=== PATIENT | male | born 1965 | race Caucasian/White ===

== ENCOUNTER 2017-12-13 13:08 | Emergency (ER) | payer BC, SELFPAY ==
[2017-12-13 13:14] VITALS: BP 151/107; PULSE 90; RESP 16; TEMP 36.9; O2SAT 97
--- NOTE | 2017-12-13 14:11 | ED.GENADUL ---
Disposition Clinical Impression: Cervical radiculopathy, Neck muscle spasm Disposition: HOME Condition: Improving Instructions: Cervical Radiculopathy (ED), Muscle Spasm (ED), Acute Neck Pain (ED) Additional Instructions: Alternate Tylenol and Motrin as needed and directed for pain. Take the Valium as directed for help with muscle spasm. Take the oxycodone as needed and directed for pain not relieved with the Tylenol, Motrin or Valium. Follow-up with your primary care doctor within the next week. Return to the emergency department with any worsening or new concerning symptoms. Prescriptions: Diazepam [Valium] 5 mg PO TID PRN #12 tablet PRN Reason: Muscle Spasm OxyCODONE [Roxicodone] 5 mg PO Q6H PRN #10 tab PRN Reason: Pain Forms: Work Release Medical Decision Making - Medical Decision Making 52-year-old male who presents with right lateral neck pain extending into right trapezius and down right arm into forearm for the past 5 days. Denies specific injury. Pain is worse with movement of head and arm. Patient was seen by chiropractor and PCP office this week. Patient was diagnosed with likely muscle strain and given Toradol IM and prednisone by PCP office. Patient has only taken 1 dose of steroids yesterday. No relief with Tylenol with codeine and Flexeril from a previous injury at home today. Patient appears nontoxic and in no acute distress. He denies chest pain, shortness of breath or fever. His lungs are clear to auscultation. He has normal oxygen saturation. As pain is worse with movement of his head and arm, appears consistent likely with a muscle spasm/strain causing a cervical radiculopathy. I explained to patient that further assessment could include a CT neck to assess for any bony abnormality but he is refusing this at this time. I also discussed the possibility of an MRI cervical spine at some point at a later time if recommended by his PCP if pain persists or worsens but generally a trial of physical therapy is done before this if no obvious acute concerns. Patient states he has been holding his head still more over the past few days due to pain with movement. I explained that this may be causing worsening spasm of his neck. Instructed him to take his neck and head through gentle range of motion exercises, in conjunction with ice and heat, NSAIDs. Will add Valium as a muscle relaxer as well as oxycodone if needed. Will give a dose of Toradol IM, Valium p.o. and oxycodone p.o. here and reassess. 1445 --patient states he feels better. Patient appears to be moving more comfortably. Patient feels good to go home. Patient instructed to call his primary care doctor today or tomorrow to schedule follow-up appointment for next week and return to the ER with any concerns. History of Present Illness - General Chief complaint: Nk/Back Pain Stated complaint: PINCHED NERVE IN HIS NECK Time Seen by Provider: 12/13/17 13:20 Source: patient Mode of arrival: ambulatory Limitations: no limitations - History of Present Illness Initial comments: Pt is a 52yo M who presents to the ED w/ a c/o right-sided neck pain with radiation to right arm for the past 5 days. Patient denies any specific injury. Patient states the pain is worse with movement of his head and arm. He admits to some numbness in his arm and forearm but denies any arm weakness. He has taken ibuprofen for pain without relief. He saw his chiropractor 2 days ago and had his neck adjusted without relief. He was seen at his PCP office yesterday for the same complaint and was diagnosed likely with a muscle strain and started on prednisone and given a shot of Toradol in the office but denies any relief with this. Patient states he had Tylenol with codeine and Flexeril left over from a few years ago and took these today without relief. Patient denies chest pain, shortness of breath or fever. - Related Data Ibuprofen 800 mg PO TID PRN tab-cap 12/12/17 Prednisone 40 mg PO DAILY #14 tab-cap 12/12/17 Diazepam [Valium] 5 mg PO TID PRN #12 tablet 12/13/17 OxyCODONE [Roxicodone] 5 mg PO Q6H PRN #10 tab 12/13/17 Allergies Allergy/AdvReac Type Severity Reaction Status Date / Time No Known Allergies Allergy Unverified 12/13/17 13:17 Review of Systems Constitutional: denies: chills, fever Eyes: denies: eye pain ENT: denies: ear pain, dental pain Respiratory: denies: cough, shortness of breath Cardiovascular: denies: chest pain, dyspnea on exertion Gastrointestinal: denies: abdominal pain, nausea, vomiting Genitourinary: denies: urgency, dysuria, frequency Musculoskeletal: denies: back pain Skin: denies: rash, lesions Neurological: denies: headache, weakness, numbness Past Medical History - Past Medical History Medical history: hypertension Surgical history: other (knee surgery, shoulder surgery) Psychiatric history: depression - Social History Smoking status: never smoker Alcohol use: occasionally Drug use: none General Exam - General Limitations: no limitations General appearance: alert, in no apparent distress - Head Head exam: Present: atraumatic - Eye Eye exam: Present: PERRL, EOMI - Neck Neck exam: Present: normal inspection, other (No tenderness to palpation of right lateral paraspinal cervical region or overlying right trapezius.) - Respiratory Respiratory exam: Present: normal lung sounds bilaterally. Absent: respiratory distress, wheezes, rales, rhonchi, stridor - Cardiovascular Cardiovascular Exam: Present: regular rate, normal rhythm. Absent: bradycardia, tachycardia - GI/Abdominal GI/Abdominal exam: Present: soft, normal bowel sounds. Absent: distended, tenderness, guarding, rebound, rigid - Extremities Exam Extremities exam: Present: full ROM, other (No tenderness palpation of right upper arm or forearm.) - Neurological Exam Neurological exam: Present: alert, oriented X3, other (MS 5/5 b/l UE/LE. Symmetric and normal motor function b/l radial/median/ulnar nerve function 5/5. Cap refill less than 2 seconds. 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 Absent: motor sensory deficit - Psychiatric Psychiatric exam: Present: normal affect - Skin Skin exam: Present: warm, dry, intact Course Vital Signs - 24 hr 12/13/17 13:14 Temperature 98.4 F Pulse 90 Respiratory 16 Rate Blood Pressure 151/107 Pulse Oximetry 97
[2017-12-13] MEDS: oxyCODONE 5 MG TAB PO (14:16)
[2017-12-13] MEDS: Diazepam 5 MG TAB PO (14:16)
[2017-12-13] MEDS: Ketorolac 60 MG/2 ML VIAL IM (14:16)
== END 2017-12-13 14:55 | disposition home or self-care (01) ==
PROVIDERS: Emergency Provider Physician Assistant; PCP Family Medicine
DX: M54.12 Radiculopathy, cervical region (principal); M62.838 Other muscle spasm
CPT/HCPCS: 96372; 99284; J1885

== ENCOUNTER 2017-12-16 08:40 | Emergency (ER) | payer BC, SELFPAY ==
[2017-12-16 08:46] VITALS: BP 121/86; PULSE 81; RESP 20; TEMP 36.4; O2SAT 97
--- NOTE | 2017-12-16 09:05 | ED.GENADUL_ITS ---
Discharge Plan Discharge Details Chief Complaint: Nk/Back Pain Clinical Impression: Cervical radiculopathy Reason For Visit: neck pain Primary Care Provider: Wilber Vázquez ED Provider: Dwight Vargas Disposition Patient Disposition: HOME Home Meds and New Rx's Prescriptions: New gabapentin 300 mg capsule 300 mg PO TID Qty: 30 RF: 0 Continue ibuprofen 800 MG tablet 800 mg PO TID PRN RF: 0 prednisone 20 MG tablet 40 mg PO DAILY Qty: 14 RF: 0 diazepam [Valium] 5 MG tablet 5 mg PO TID PRN (Reason: Muscle Spasm) Qty: 12 RF: 0 Discontinued oxycodone 5 MG tablet 5 mg PO Q6H PRN (Reason: Pain) Qty: 10 RF: 0 Discharge Instructions Instructions: Gabapentin (By mouth), Cervical Radiculopathy (ED) Additional Instructions: follow up with your primary care provider this week if you have high fevers or severe headaches return to the emergency department you can also take 1000mg tylenol and 600mg ibuprofen every 6 hours for pain as needed Discharge Data Discharge Physician: Dwight Vargas Medical Decision Making [facility] Narrative Medical decision making narrative: patient here with 6 days of nontraumatic right sided neck pain and pain radiating down the right arm that is likely cervical radiculopathy. No fevers and no hx of ivdu so doubt sea. No focal motor or sensation deficits so do not feel emergent MRI indicated and no fevers or systemic symptoms to suggest osteo. Has no trauma or midline emily so do not feel ct to eval for fx indicated. I advised he should f/u with pcp and discuss mri and further pain management, will start gabapentin. Has normal vascular exam so doubt dissection at this time. 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 Date/Time Provider Initiated Documentation: 12/16/17 08:53 . Limitations to Documentation: no limitations . Information obtained by: patient . History of Present Illness 52 year old M presents to the emergency department with the chief complaint of right sided neck pain, described as severe, with intensity rated at 8. Quality is described as sharp, and is localized to the neck. Patient extremity (right arm). Patient started experiencing this day(s) (6) and it has been constant. other things that improve symptom(s), (laying down) No exacerbating factors reported . Patient notes no other symptoms.. Patient did receive the following treatments prior to arrival, other (oxycodone) Related Data Home Medications Medication Instructions Recorded Confirmed ibuprofen 800 mg PO TID PRN tab-cap 12/12/17 12/13/17 Previous Rx's Medication Instructions Recorded diazepam [Valium] 5 mg PO TID PRN #12 tablet 12/13/17 gabapentin 300 mg PO TID #30 cap 12/16/17 Allergies Allergy/AdvReac Type Severity Reaction Status Date / Time No Known Allergies Allergy Unverified 12/13/17 13:17 General Stated Complaint: Nk/Back Pain DOLORES: 4 Review of Systems Review of Systems All systems reviewed & are unremarkable except as noted in HPI and below Constitutional Denies chills, Denies fever(s) and Denies weakness Eyes Patient Denies loss of vision ENT Denies change in voice Cardiovascular Denies chest pain and Denies dyspnea Respiratory Denies dyspnea Gastrointestinal Denies abdominal pain, Denies nausea and Denies vomiting Genitourinary Denies dysuria Musculoskeletal Denies joint swelling and Reports other (right neck pain ) Integumentary/Breasts Denies rash Neurologic Denies loss of vision and Denies weakness Psychiatric Denies depression Endocrine Denies cold intolerance and Denies heat intolerance Allergic/Immunologic Reports urticaria PFSH Family History Mother Essential hypertension Asthma Father Diabetes Essential hypertension Heart disease Sister No problems noted. Grandfather Personal history of malignant neoplasm Grandfather Essential hypertension Heart disease Grandmother No problems noted. Grandmother Personal history of malignant neoplasm Social History Smoking/Tobacco Use Status: Current every day Surgical History KNEE REPAIR Rotator Cuff Repair (~2006) Exam Const General: no acute distress Orientation: alert HENMT Head: normal to inspection Ears: external ears normal General nose exam: external nose normal Mouth: moist mucous membranes Eyes General: appearance normal, both eyes and all related structures Neck Neck: normal visual inspection, full ROM, no meningeal signs, trachea midline, negative Brudzinski's sign, negative Kernig's sign and tender (right sided trapezius muscle pain) Resp Effort & Inspection: normal respiratory effort and able to speak in complete sentences Cardio Rate: regular rate Skin General skin exam: no rashes or lesions noted Neuro General: alert, oriented x3, moves all extremities, normal light touch, pain and propioception and focal motor deficits present Motor: muscle tone normal throughout and strength 5/5 throughout Sensory Exam: no sensory deficits noted Extrem General: normal to inspection, full ROM and normal capillary refill Right upper extremity: normal to inspection, full ROM and normal capillary refill; no edema Psych Mental Status: mental status grossly normal Course Vital Signs Temperature 36.4 C L 12/16/17 08:46 Pulse 81 12/16/17 08:46 Respiratory Rate 20 12/16/17 08:46 Blood Pressure 121/86 12/16/17 08:46 Pulse Oximetry 97 12/16/17 08:46 Temperature 36.4 C L 12/16/17 08:46 Pulse 81 12/16/17 08:46 Respiratory Rate 20 12/16/17 08:46 Blood Pressure 121/86 12/16/17 08:46 Pulse Oximetry 97 12/16/17 08:46
[2017-12-16] MEDS: Gabapentin 300 MG CAP PO (09:08)
[2017-12-16] MEDS: oxyCODONE 5 MG TAB PO ×3 (09:09→09:33)
--- NOTE | 2017-12-16 09:33 | NUR.NOTE ---
Nursing Note: Due to system upgrade, 3 separate dose of oxycodone 5mg tablets had to be pulled from [facility] [employer]. Sent home with patient in labelled bag per protocol.
[2017-12-16 09:34] VITALS: BP 121/86; PULSE 81; RESP 20; TEMP 36.4; O2SAT 97
== END 2017-12-16 09:33 | disposition home or self-care (01) ==
PROVIDERS: Emergency Provider Emergency Medicine; PCP Family Medicine
DX: M54.2 Cervicalgia (principal)
CPT/HCPCS: 99283

== ENCOUNTER 2017-12-19 01:23 | Outpatient (CLI) | payer BC, SELFPAY ==
--- NOTE | 2017-12-19 11:30 | DI.MRI_ITS ---
SYMPTOMS/DIAGNOSIS: RIGHT CERVICAL RADICULOPATHY MRI OF THE CERVICAL SPINE: Routine noncontrast MRI of the cervical spine was performed. There is normal signal in the spinal cord. No evidence of tonsillar ectopia is seen. At C5-C6, there is prominence of the osteophyte-disc complex with extension of disc material into the right neural foramen. The findings cause moderately severe right neural foraminal stenosis. There is mild narrowing of the central spinal canal with effacement of the anterior subarachnoid space. The AP diameter of the spinal canal remains at 1.1 cm. There is mild prominence of the left uncovertebral joint causing mild narrowing of the left neural foramen. At C4-C5, there is prominence of the osteophyte-disc complex and a small central disc herniation, but no central spinal canal or neural foraminal stenosis is present. At C3-C4, there is no focal disc herniation, central spinal canal or neural foraminal stenosis. The remaining disc levels are unremarkable. Marrow signal is within normal limits. The soft tissues are unremarkable. IMPRESSION: 1. C5-C6 shows degenerative changes at the uncovertebral joints and prominence of the osteophyte-disc complex. There does appear to be a herniation of disc material to the right causing moderately severe right neural foraminal stenosis. 2. Multilevel degenerative changes in the cervical spine as described above.
== END 2017-12-19 01:43 ==
LOC: DI 01:24
PROVIDERS: PCP Family Medicine; Visit Provider Family Medicine
DX: M54.12 Radiculopathy, cervical region (principal); M50.922 Unspecified cervical disc disorder at C5-C6 level
CPT/HCPCS: 72141

== ENCOUNTER 2018-01-01 00:44 | Outpatient (CLI) | payer BC, SELFPAY ==
--- NOTE | 2018-01-01 10:30 | DI.MRI_ITS ---
SYMPTOMS/DIAGNOSIS: RT SHOULDER PAIN, M25.511, CERVICALGIA, M54.2 RIGHT SHOULDER MRI: T 2 axial fat sat , proton density axial, T 2 coronal fat sat, proton density coronal, T 2 sagittal fat and proton sagittal pulse sequences were performed. The bony signal is unremarkable. There is no evidence of a supraspinatus tendon tear. The infraspinatus and subscapularis myotendinous structures as visualized appear intact as does the biceps tendon. The possibility of an inferior labral tear could not be excluded in this patient. The muscular structures get a Goutallier grade I classification. SUMMARY: The possibility of an inferior labral tear is raised in this patient. The study is otherwise essentially unremarkable. If there is specific further clinical question, then a MR Arthrogram could be considered.
== END 2018-01-01 01:04 ==
PROVIDERS: PCP Family Medicine; Visit Provider Family Medicine
DX: M25.511 Pain in right shoulder (principal); M54.2 Cervicalgia
CPT/HCPCS: 73221

== ENCOUNTER 2018-01-11 01:07 | Outpatient (CLI) | payer BC, SELFPAY ==
[2018-01-11 12:45] LABS: Abs Immature Grans 0.06 k/cumm (0.0-0.09); Absolute Basophil Count 0.04 k/cumm (0.0-0.2); Absolute Eosinophil Count 0.13 k/cumm (0.0-0.7); Absolute Lymphocyte Count 1.85 k/cumm (1.2-3.4); Absolute Monocyte Count 0.66 k/cumm (0.11-0.7); Absolute Neutrophil Count 2.85 k/cumm (1.2-6.7); Basophils % 0.7; Eosinophils % 2.3; HCT 44.3 % (40.0-50.0); HGB 15.2 g/dL (13.5-17.5); Immature Grans % 1.1; Lymphocytes % 33.1; Mean Corp. HGB Concentration 34.3 g/dL (32.0-36.0); Mean Corpuscular Hemoglobin 32.8 pg (27.0-33.0); Mean Corpuscular Volume 95.5 fL (80-95); Mean Platelet Volume 11.8 fL (8.0-11.0); Monocytes % 11.8; Platelet Count 126 x1000/uL (130-400); RBC 4.64 m/cumm (4.50-6.00); RBC Distribution Width 12.5 % (11.8-14.1); White Blood Cell Count 5.59 k/cumm (4.4-10.8)
[2018-01-11 13:17] LABS: ALT 18 U/L (12-78); AST 20 U/L (15-37); Albumin 3.7 g/dL (3.4-5.0); Alkaline Phosphatase 59 U/L (46-116); Anion Gap 8.9 mmol/L (3-11); BUN 12 mg/dL (7-18); CO2 25.1 mmol/L (21.0-32.0); CREATININE 0.99 mg/dL (0.70-1.30); Calcium 8.5 mg/dL (8.5-10.1); Chloride 104 mmol/L (98-107); Glucose 196 mg/dL (70-100); Potassium 4.5 mmol/L (3.5-5.1); Sodium 138 mmol/L (136-145); Total Protein 6.7 g/dL (6.4-8.2)
[2018-01-14 05:45] LABS: Hemoglobin A1C 7.4 % (4.5-6.2)
== END 2018-01-11 01:27 ==
PROVIDERS: Internal Medicine; PCP Family Medicine; Visit Provider Family Medicine
DX: Z01.818 Encounter for other preprocedural examination (principal); R73.09 Other abnormal glucose
CPT/HCPCS: 36415; 80053; 83036; 85025

== ENCOUNTER 2018-02-11 09:08 | Outpatient (CLI) | payer BC, SELFPAY ==
[2018-02-11 10:25] LABS: Anion Gap 13.4 mmol/L (3-11); BUN 12 mg/dL (7-18); CO2 22.6 mmol/L (21.0-32.0); CREATININE 1.07 mg/dL (0.70-1.30); Calcium 9.1 mg/dL (8.5-10.1); Chloride 102 mmol/L (98-107); Glucose 195 mg/dL (70-100); Potassium 4.6 mmol/L (3.5-5.1); Sodium 138 mmol/L (136-145)
== END 2018-02-11 09:28 ==
PROVIDERS: PCP Family Medicine; Visit Provider Family Medicine
DX: E11.9 Type 2 diabetes mellitus without complications (principal)
CPT/HCPCS: 36415; 80048

== ENCOUNTER 2018-02-20 13:20 | Outpatient (CLI) | payer BC, SELFPAY ==
--- NOTE | 2018-02-20 15:00 | DI.RAD_ITS ---
SYMPTOMS/DIAGNOSIS: S/P CERVICAL SPINAL FUSION, V45.4, 01/17/18 ACDF AT C5-6 LATERAL CERVICAL SPINE: The patient is status post fusion of the C 5 - [address] vertebra[address] in place. There is no evidence of a fracture or subluxation. There may be some very slight retrolisthesis of C 5 on C 6. In the lateral plane no posterior element abnormality is seen. No prior plain film images were extant at the time of this review.
== END 2018-02-20 13:40 ==
PROVIDERS: PCP Family Medicine; Visit Provider Physician Assistant Medical
DX: M50.10 Cervical disc disorder with radiculopathy, unspecified cervical region (principal); Z98.1 Arthrodesis status
CPT/HCPCS: 72020

== ENCOUNTER 2018-08-13 11:21 | Outpatient (CLI) | payer BC, SELFPAY ==
[2018-08-13 12:03] LABS: Hemoglobin A1C 6.1 % (4.5-6.2)
== END 2018-08-13 11:41 ==
PROVIDERS: PCP Family Medicine; Visit Provider Family Medicine
DX: E11.9 Type 2 diabetes mellitus without complications (principal)
CPT/HCPCS: 36415; 83036

== ENCOUNTER 2019-02-20 00:06 | Outpatient (CLI) | payer BC, SELFPAY ==
[2019-02-20 12:57] LABS: Anion Gap 7.6 mmol/L (3-11); BUN 17 mg/dL (7-18); CO2 28.4 mmol/L (21.0-32.0); CREATININE 0.95 mg/dL (0.70-1.30); Calcium 8.8 mg/dL (8.5-10.1); Chloride 103 mmol/L (98-107); Glucose 127 mg/dL (70-100); Potassium 4.5 mmol/L (3.5-5.1); Sodium 139 mmol/L (136-145)
== END 2019-02-20 00:26 ==
PROVIDERS: PCP Family Medicine; Visit Provider Family Medicine
DX: I10 Essential (primary) hypertension (principal)
CPT/HCPCS: 36415; 80048

== ENCOUNTER 2019-12-26 14:03 | Outpatient (REF) | payer OTHER, SELFPAY ==
[2019-12-26 21:16] LABS: ALT 19 U/L (16-63); AST 23 U/L (15-37); Albumin 3.9 g/dL (3.4-5.0); Alkaline Phosphatase 56 U/L (46-116); Anion Gap 8.5 mmol/L (3-11); BUN 15 mg/dL (7-18); Bilirubin, Total 1.2 mg/dL (0.2-1.0); CO2 25.5 mmol/L (21.0-32.0); CREATININE 0.93 mg/dL (0.70-1.30); Calcium 8.5 mg/dL (8.5-10.1); Calculated LDL 123 mg/dL (<100); Chloride 101 mmol/L (98-107); Cholesterol 191 mg/dL (<200); Glucose 162 mg/dL (74-106); HDL Cholesterol 46 mg/dL (40-60); Potassium 4.2 mmol/L (3.5-5.1); Sodium 135 mmol/L (136-145); Triglyceride 110 mg/dL (<150)
[2019-12-26 21:23] LABS: Hemoglobin A1C 6.8 % (<5.7)
== END 2019-12-26 14:23 ==
LOC: LBN 14:03
PROVIDERS: PCP Nurse Practitioner Family; Visit Provider Nurse Practitioner Family
DX: E11.9 Type 2 diabetes mellitus without complications (principal)
CPT/HCPCS: 80053; 80061; 83036

== ENCOUNTER → 2020-05-14 00:58 | Outpatient (CLI) | payer OTHER, SELFPAY ==
[2020-05-14 12:41] LABS: Hemoglobin A1C 7.1 % (<5.7)
[2020-05-14 13:06] LABS: Anion Gap 7.2 mmol/L (3-11); BUN 17 mg/dL (7-18); CO2 26.8 mmol/L (21.0-32.0); Calcium 8.9 mg/dL (8.5-10.1); Calculated LDL 64 mg/dL (<100); Chloride 104 mmol/L (98-107); Cholesterol 129 mg/dL (<200); Glucose 128 mg/dL (74-106); HDL Cholesterol 42 mg/dL (40-60); Sodium 138 mmol/L (136-145); Triglyceride 117 mg/dL (<150); Vitamin B12 301 pg/mL (193-986)
== END ==
PROVIDERS: PCP Nurse Practitioner Family; Visit Provider Nurse Practitioner Family
DX: E11.9 Type 2 diabetes mellitus without complications (principal); Z86.39 Personal history of other endocrine, nutritional and metabolic disease
CPT/HCPCS: 36415; 80048; 80061; 82607; 83036

== ENCOUNTER 2020-11-08 12:45 | Day surgery (SDC) | payer OTHER, SELFPAY ==
--- NOTE | 2020-11-08 07:04 | W.COLOREPORT ---
Date of service: 11/08/20 Time of Service: 13:35 Colonoscopy Report Date of procedure: 11/08/20 Pre-op diagnosis general: Colon Cancer Screening for Hx of colon polyps Post-op diagnosis procedure note: same Procedure: Colonoscopy Surgeon: Kathleen Reese Anesthesia Type: General:No Airway (ASA 2/ Jose Lebron, ROSIO) Estimated blood loss (mL): 0 Pathology: none sent Complications: None Disposition: same day Indications: The patient is here for Colonoscopy pre-op. His last screening was in 2016, which was remarkable for tubular adenoma. He reports a family history of colon cancer in his maternal grandfather. He has not had any bowel habit changes. -Discussed colonoscopy bowel prep as well as the procedure. Discussed possible complications of the procedure to include bleeding, pain, perforation, missed small lesion/polyp, sore throat, aspiration and adverse reaction to the medications. Questions were answered to patient?s satisfaction. No guarantees were implied or given. Prep: Miralax/Dulcolax Procedure Start Time: 13:35 Procedure End Time: 13:56 Retraction Time: 13 minutes Findings: Normal colon Procedure Description: After informed consent was obtained the patient was taken to the procedure room and placed in a left decubitous position. Monitors were applied and a time out was done. The patients name, date of , procedure, allergies to medications and metal in their body was reviewed. The patient was then sedated. Once sedated and comfortable a rectal exam was done. External exam was normal. Internal exam revealed a normal sphincter tone and no palpable masses. The prostate felt smooth. The scope was then introduced and retro-flexed. No internal hemorrhoids, polyps or masses were identified on retro-flexion. The scope was then advanced to the cecum without difficulty. The ileocecal vlave and appendiceal orifice were identified. The prep was adequate. The scope was then slowly retracted over 13 minutes back into the rectum. There were no polyps. There was no diverticulosis noted. The scope was removed and the patient was woken up and taken back to Same day surgery in stable condition. The patient tolerated the procedure well and there were no immediate complications. Follow up: The patient should follow up in 5 years unless they develop changes in bowel habits or other new gastrointestinal complaints.
--- NOTE | 2020-11-08 07:06 | W.PM.DSUDISC ---
Discharge Plan Disposition Patient Disposition: HOME Condition: Good Discharge Details Reason For Visit: HX OF POLYPS Attending Provider: Kathleen Reese Primary Care Provider: Minerva Denney Home Meds and New Rx's Prescriptions: Continued rosuvastatin 5 mg tablet 5 mg PO DAILY Qty: 90 RF: 4 metformin 500 mg tablet extended release 24hr 1,000 mg PO BID Qty: 360 RF: 4 Discontinued polyethylene glycol 3350 17 gram/dose powder 238 g PO ONCE Qty: 238 RF: 0 bisacodyl [Dulcolax (bisacodyl)] 5 mg tablet,delayed release (DR/EC) 5 mg PO ONCE Qty: 4 RF: 0 Discharge Instructions Additional Instructions: Findings: normal colon Follow up: 5 years Please call if you develop: fevers >101.5 Nausea or Vomiting Abdominal pain that is not transient Rectal bleeding that is more then a tbsp A hard abdomen and inability to pass gas DAY SURGERY UNIT POST ENDOSCOPY INSTRUCTIONS Instructions for everyone who is given Anesthesia: For your safety, please do the following for the next 24 Hours: a. Do not drive or operate dangerous equipment b. Do not drink alcohol beverages or use any recreational drugs for the first 24 hours or while taking pain medications. The medications in your body may have a reaction that can be dangerous. c. Do not make any important decisions or sign any important papers 1. Generally there are no restrictions on your activity after a day or so has gone by, but you may feel a bit fatigued for a few days. 2. After you arrive home you may have a light meal and return to a normal diet as you can tolerate it without feeling sick to your stomach. 3. After surgery, you may feel pain or discomfort. This should be only transient, but if it persists please contact your doctor. 4. If there are any questions regarding the findings of your procedure, please feel free to contact your doctor. 6. If you are unable to contact your doctor with a problem, contact the hospital at [phone]. 7. Continue all your regular medications unless directed otherwise. I understand the above instructions and have no questions. Signature of Patient or Responsible Adult Escort Date/Time Name of Responsible Adult Escort Signature of Nurse Date/Time Activity:: Activity as Tolerated Diet:: As Tolerated Discharge Orders Discharge Orders: Discharge Order (Routine); Ordered 11/08/20 Ordered By: Kathleen Reese
--- NOTE | 2020-11-08 12:56 | W.ANESPRE ---
General Info Height: 5 ft 10 in Weight: 109.543 kg Body Mass Index (BMI): 34.6 Surgical Procedure: Operation Date: 11/08/20 12:35 Proposed Procedures Side Surgeon p Colonoscopy Kathleen Reese MD Meds Allergies and Home Medications Allergies Allergy/AdvReac Type Severity Reaction Status Date / Time No Known Allergies Allergy Verified 11/05/20 14:56 Home Medication Medication Instructions Recorded rosuvastatin 5 mg tablet 5 mg PO DAILY #90 tab 01/01/20 metformin 500 mg tablet,extended 1,000 mg PO BID #360 tab 11/03/20 release 24hr bisacodyl 5 mg tablet,delayed 5 mg PO ONCE #4 tab 11/05/20 release polyethylene glycol 3350 17 238 g PO ONCE #238 g 11/05/20 gram/dose oral powder Current Visit Medications: Current Medications Generic Name Dose Route Start Last Admin Trade Name Freq PRN Reason Stop Dose Admin Hyoscyamine Sulfate 0.125 mg 11/08/20 07:06 Hyoscyamine 0.125 Mg Sl/Oral/Chew SL DIRECTED PRN Ringer's Solution 1,000 mls @ 80 mls/hr 11/08/20 06:00 IV 12/05/20 23:59 [facility] IV Miscellaneous Supplies 1 each 11/08/20 06:00 Iv Access IV 12/05/20 23:59 DIRECTED MAYLIN Ondansetron HCl 4 mg 11/08/20 07:06 Ondansetron 4 Mg/2 Ml Vial IVP Q4H PRN PRN Nausea / Vomiting Sodium Chloride 0 ml 11/08/20 06:00 Normal Saline Flush 10 Ml Syr IV 12/05/20 23:59 PRN PRN Sodium Chloride 0 ml 11/08/20 06:00 Normal Saline 10 Ml Vial IJ 12/05/20 23:59 DIRECTED PRN Sterile Water 0 ml 11/08/20 06:00 Water,Injection,Sterile 10 Ml Vial IJ 12/05/20 23:59 DIRECTED PRN PFSH Active Problems Active Problems: Problem Status Onset Code Type 2 diabetes mellitus E11.9 Hyperlipidemia E78.5 Osteoarthritis M19.90 Obesity E66.9 Tubular adenoma of colon D12.6 Erectile dysfunction associated with type 2 diabetes mellitus E11.69, N52.1 Medical History Medical History Erectile dysfunction associated with type 2 diabetes mellitus History of alcoholism Hyperlipidemia Obesity Osteoarthritis Tubular adenoma of colon On 2016 colonoscopy Type 2 diabetes mellitus Surgical History Surgical History S/P cervical discectomy S/P right knee surgery Meniscus repair S/P right rotator cuff repair Tobacco Smoking/Tobacco Use Status: Former Tobacco Use Tobacco: How many years used: 30 Passive smoking exposure: Yes Alcohol Alcohol Intake: current Alcohol intake frequency: a few times a week Alcohol type: hard liquor Substance Use Substance use: Never Substance use type: does not use Vital Signs and Lab Results Lab Results Blood Type / Crossmatch: No Data to Display Complete Blood Count: No Data to Display Complete Metabolic Panel: No Data to Display Liver Function Panel: No Data to Display Coagulation Panel: No Data to Display Cardiac Panel: No Data to Display Arterial Blood Gas: No Data to Display Venous Blood Gas: No Data to Display Pancreas Panel: No Data to Display Thyroid Panel: No Data to Display Infectious Disease: No Data to Display Blood Cultures: No Data to Display Toxicology Panel: No Data to Display Imaging and Studies Imaging and Studies Stress Test Summary: 2015: negative for ischemia. Anesthesia Assessment and Plan Anesthesia History Personal History: No History of Anesthesia Complications Family History: No Family History of Anesthesia Complications Exercise Tolerance Exercise Tolerance: Metabolic Equivalents>4 Cardiac & Pulmonary Exam Cardiac Exam: Normal S1/S2 Heart Sounds Pulmonary Exam: Clear Bilateral Breath Sounds ASA Classification ASA Score: ASA 2 Emergency Case?: No NPO Status NPO Status: NPO Clears >2 hours, Solids >8 hours Anesthesia Plan Resuscitation Status: Full Code Anesthesia Technique: MAC Anesthesia Monitors Used: Standard Monitors
--- NOTE | 2020-11-08 13:04 | W.ANESPRE ---
General Info Date of Service Date Performed: 11/08/20 Height: 5 ft 10 in Weight: 109.543 kg Body Mass Index (BMI): 34.6 Surgical Procedure: Operation Date: 11/08/20 12:35 Proposed Procedures Side Surgeon p Colonoscopy Kathleen Reese MD Meds Allergies and Home Medications Allergies Allergy/AdvReac Type Severity Reaction Status Date / Time No Known Allergies Allergy Verified 11/08/20 13:05 Home Medication Medication Instructions Recorded rosuvastatin 5 mg tablet 5 mg PO DAILY #90 tab 01/01/20 metformin 500 mg tablet,extended 1,000 mg PO BID #360 tab 11/03/20 release 24hr bisacodyl 5 mg tablet,delayed 5 mg PO ONCE #4 tab 11/05/20 release polyethylene glycol 3350 17 238 g PO ONCE #238 g 11/05/20 gram/dose oral powder Current Visit Medications: Current Medications Generic Name Dose Route Start Last Admin Trade Name Freq PRN Reason Stop Dose Admin Hyoscyamine Sulfate 0.125 mg 11/08/20 07:06 Hyoscyamine 0.125 Mg Sl/Oral/Chew SL DIRECTED PRN Ringer's Solution 1,000 mls @ 80 mls/hr 11/08/20 06:00 IV 12/05/20 23:59 INFUSION [facility] IV Miscellaneous Supplies 1 each 11/08/20 06:00 Iv Access IV 12/05/20 23:59 DIRECTED MAYLIN Ondansetron HCl 4 mg 11/08/20 07:06 Ondansetron 4 Mg/2 Ml Vial IVP Q4H PRN PRN Nausea / Vomiting Sodium Chloride 0 ml 11/08/20 06:00 Normal Saline Flush 10 Ml Syr IV 12/05/20 23:59 PRN PRN Sodium Chloride 0 ml 11/08/20 06:00 Normal Saline 10 Ml Vial IJ 12/05/20 23:59 DIRECTED PRN Sterile Water 0 ml 11/08/20 06:00 Water,Injection,Sterile 10 Ml Vial IJ 12/05/20 23:59 DIRECTED PRN PFSH Active Problems Active Problems: Problem Status Onset Code Type 2 diabetes mellitus E11.9 Hyperlipidemia E78.5 Osteoarthritis M19.90 Obesity E66.9 Tubular adenoma of colon D12.6 Erectile dysfunction associated with type 2 diabetes mellitus E11.69, N52.1 Medical History Medical History Erectile dysfunction associated with type 2 diabetes mellitus History of alcoholism Hyperlipidemia Obesity Osteoarthritis Tubular adenoma of colon On 2016 colonoscopy Type 2 diabetes mellitus Surgical History Surgical History S/P cervical discectomy S/P right knee surgery Meniscus repair S/P right rotator cuff repair Tobacco Smoking/Tobacco Use Status: Former Tobacco Use Tobacco: How many years used: 30 Passive smoking exposure: Yes Alcohol Alcohol Intake: current Alcohol intake frequency: a few times a week Alcohol type: hard liquor Substance Use Substance use: Never Substance use type: does not use Vital Signs and Lab Results Lab Results Blood Type / Crossmatch: No Data to Display Complete Blood Count: No Data to Display Complete Metabolic Panel: No Data to Display Liver Function Panel: No Data to Display Coagulation Panel: No Data to Display Cardiac Panel: No Data to Display Arterial Blood Gas: No Data to Display Venous Blood Gas: No Data to Display Pancreas Panel: No Data to Display Thyroid Panel: No Data to Display Infectious Disease: No Data to Display Blood Cultures: No Data to Display Toxicology Panel: No Data to Display Imaging and Studies Imaging and Studies Stress Test Summary: 2015: negative for ischemia. Anesthesia Assessment and Plan Anesthesia History Personal History: No History of Anesthesia Complications Family History: No Family History of Anesthesia Complications Exercise Tolerance Exercise Tolerance: Metabolic Equivalents>4 Pertinent Negatives Pertinent Negatives: No Symptoms of GERD, No Major Cardiovascular Symptoms or Complaints, No Major Pulmonary Symptoms or Complaints and No History of CVA/TIA Cardiac & Pulmonary Exam Cardiac Exam: Normal S1/S2 Heart Sounds Pulmonary Exam: Clear Bilateral Breath Sounds Airway Exam Known Difficult Airway: No Mallampati Class: 2 Mouth Opening: Narrow (< 3cm) Thyromental Distance: Greater than 3 cm Neck Range of Motion: Full ROM Neck Circumference: Normal Teeth Condition: Normal Dentition ASA Classification ASA Score: ASA 2 Emergency Case?: No NPO Status NPO Status: NPO Clears >2 hours, Solids >8 hours Anesthesia Plan Resuscitation Status: Full Code Anesthesia Technique: General Anesthesia Airway Planned: Natural Airway Monitors Used: Standard Monitors
[2020-11-08 13:06] VITALS: BP 129/95; PULSE 84; RESP 16; TEMP 36.1; O2SAT 97
[2020-11-08] MEDS: Lactated Ringers 1,000 ML 80 ML IV (13:18)
[2020-11-08 13:22] VITALS: BMI 34.6
--- NOTE | 2020-11-08 14:03 | W.ANESPOSTOP ---
Postoperative Evaluation Date, Time and Location Date Performed: 11/08/20 Time Performed: 14:04 Patient Location: Day Surgery Unit Vital Signs Most Recent Imported Vital Signs: Most Recent Vital Signs Temp Pulse Resp BP Pulse Ox 36.1 C L 84 16 129/95 H 97 11/08/20 13:06 11/08/20 13:06 11/08/20 13:06 11/08/20 13:06 11/08/20 13:06 Most Recent Manually Entered Vital Signs: Adult Blood Pressure: 124/92 Heart Rate: 92 Respirations: 12 Oxygen Saturation (%): 95 Temperature (C): 36.5 C Pain Score (0-10 Scale): 0 Assessment Mental Status: Awake (Alert & Oriented to Patient Baseline) Airway and Respiratory Function: Patent airway with normal (patient baseline) respiratory exam Cardiovascular Function: Hemodynamically Stable Hydration Status: Adequately Hydrated Nausea & Vomiting: No Nausea or Vomiting Pain: Pt. Denies Any Pain Peripheral Nerve Block: Patient did not receive a nerve block
[2020-11-08 14:04] VITALS: BP 124/92; PULSE 92; RESP 12; TEMPC 36.5; O2SAT 95
[2020-11-08 14:05] VITALS: BP 124/92; PULSE 92; RESP 16; TEMP 36.4; O2SAT 95
== END 2020-11-08 14:50 | disposition home or self-care (01) ==
LOC: SUR 12:46
PROVIDERS: PCP Nurse Practitioner Family; Visit Provider Surgery
PROC: 0DJD8ZZ Inspection of Lower Intestinal Tract, Via Natural or Artificial Opening Endoscopic (ICD-10-PCS; CPT 45378; principal; 2020-11-08 12:30)
DX: Z12.11 Encounter for screening for malignant neoplasm of colon (principal); Z86.010 Personal history of colon polyps; Z80.0 Family history of malignant neoplasm of digestive organs
CPT/HCPCS: 45378; J2001

== ENCOUNTER 2020-12-17 13:06 | Outpatient (REF) | payer OTHER, SELFPAY ==
[2020-12-17 19:17] LABS: Hemoglobin A1C 7.1 % (<5.7)
== END 2020-12-17 13:07 | disposition home or self-care (01) ==
LOC: LBN 13:06
PROVIDERS: PCP Nurse Practitioner Family; Visit Provider Nurse Practitioner Family
DX: E11.9 Type 2 diabetes mellitus without complications (principal)
CPT/HCPCS: 83036

== ENCOUNTER 2022-08-04 01:41 | Outpatient (CLI) | payer BC, SELFPAY ==
[2022-08-04 12:42] LABS: Abs Immature Grans 0.04 10^3/uL (0.0-0.06); Absolute Basophil Count 0.06 10^3/uL (0.0-0.2); Absolute Lymphocyte Count 2.02 10^3/uL (1.2-3.4); Absolute Monocyte Count 0.68 10^3/uL (0.1-0.8); Absolute Neutrophil Count 2.25 10^3/uL (1.2-6.7); Basophils % 1.2; Eosinophils % 1.9; HCT 42.8 % (40.0-50.0); HGB 15.1 g/dL (13.5-17.5); Immature Grans % 0.8; Lymphocytes % 39.2; MCH 33.3 pg (27.0-33.0); MCHC 35.3 % (32.0-36.0); MCV 95 fL (80-95); MPV 10.5 fL (8.0-11.0); Monocytes % 13.2; Neutrophils % 43.7; Platelet Count 123 10^3/uL (130-400); RBC 4.53 10^6/uL (4.36-5.78); RDW 12.1 % (11.8-14.1); RDW-SD 42.4 fL; WBC 5.15 10^3/uL (4.4-10.8)
[2022-08-04 13:14] LABS: Anion Gap 9.2 mmol/L (3-11); BUN 13 mg/dL (7-18); CO2 24.8 mmol/L (21.0-32.0); CREATININE 0.9 mg/dL (0.70-1.30); Chloride 102 mmol/L (98-107); Creatine Kinase 82 U/L (39-308); Estimated GFR 99.62 (mL/min/1.73m2); Glucose 138 mg/dL (74-106); Potassium 4.1 mmol/L (3.5-5.1); Sodium 136 mmol/L (136-145); TSH (W/Ref FT4) 2.16 uIU/mL (0.36-3.74)
[2022-08-05 01:10] LABS: PSA, Screening 1.5 ng/mL (<=3.5)
== END 2022-08-04 01:42 | disposition home or self-care (01) ==
LOC: LOS 01:41
PROVIDERS: PCP Nurse Practitioner Family; Visit Provider Nurse Practitioner Family
DX: E11.9 Type 2 diabetes mellitus without complications (principal); M62.81 Muscle weakness (generalized); R61 Generalized hyperhidrosis; Z12.5 Encounter for screening for malignant neoplasm of prostate
CPT/HCPCS: 36415; 80048; 82550; 84153; 84443; 85025

== ENCOUNTER 2022-08-24 03:18 | Outpatient (CLI) | payer BC, SELFPAY ==
--- NOTE | 2022-08-24 13:00 | NS.NUTBLAN_ITS ---
Td was referred for diabetes and weight management. 5'10 237 lbs BMI: 34 PMH: obesity, Dm2, HLD, HTN DM meds: 1000 mg metformin BID Diet Recall: crackers, chips, take out food mostly. Can cook. Works 3 p- 3 a four days a week. Has F, S, S off. Reports only able to sleep 3-4 hours at time. Exercise: none Td presents with classic metabolic syndrome which has developed since working third shift and switching from nights to days during week. Has been unable to sleep well since starting working nights. Would benefit from sleeping aid in order to be able to get REM sleep. Lack of REM sleep contributing to metabolic syndrome. May need work up for sleep apnea. Session today focused on ways to follow a lower carb diet and increase activity once sleep cycle improves. Recommend protein shakes BID instead of chips and crackers and main meals of protein and vegetables. Goal is for a 10% weight loss by following a lower carb diet (<100g daily), 3 meals per 24 hours and increase in activity by using pedometer and getting 5000 steps per day minimum. No follow up planned at this time.
== END 2022-08-24 03:19 | disposition home or self-care (01) ==
LOC: DS 03:18
PROVIDERS: PCP Nurse Practitioner Family; Visit Provider Dietitian, Registered
DX: E11.9 Type 2 diabetes mellitus without complications (principal); E66.9 Obesity, unspecified; Z68.34 Body mass index [BMI] 34.0-34.9, adult; Z79.84 Long term (current) use of oral hypoglycemic drugs; Z71.3 Dietary counseling and surveillance
CPT/HCPCS: 97802

== ENCOUNTER 2023-11-08 02:51 | Outpatient (CLI) | payer BC, SELFPAY ==
[2023-11-08 13:44] LABS: HCT 44.4 % (40.0-50.0); HGB 15.7 g/dL (13.5-17.5); MCH 34.7 pg (27.0-33.0); MCHC 35.4 % (32.0-36.0); MCV 98 fL (80-95); MPV 10.5 fL (8.0-11.0); Platelet Count 134 10^3/uL (130-400); RBC 4.53 10^6/uL (4.36-5.78); RDW 12.2 % (11.8-14.1); RDW-SD 44.2 fL; WBC 6.11 10^3/uL (4.4-10.8)
[2023-11-08 14:14] LABS: ALT 32 U/L (16-63); AST 43 U/L (15-37); Albumin 3.8 g/dL (3.4-5.0); Alkaline Phosphatase 66 U/L (46-116); Anion Gap 10.1 mmol/L (3-11); BUN 14 mg/dL (7-18); Bilirubin, Total 1.79 mg/dL (0.2-1.0); CO2 25.9 mmol/L (21.0-32.0); CREATININE 0.9 mg/dL (0.70-1.30); Calcium 9.2 mg/dL (8.5-10.1); Calculated LDL 49 mg/dL (<100); Chloride 102 mmol/L (98-107); Cholesterol 125 mg/dL (<200); Glucose 179 mg/dL (74-106); HDL Cholesterol 57 mg/dL (40-60); Sodium 138 mmol/L (136-145); Total Protein 7.5 g/dL (6.4-8.2); Triglyceride 95 mg/dL (<150)
[2023-11-08 23:46] LABS: Hepatitis C Ab w Rflx HCV PCR Negative (Negative)
[2023-11-08 23:50] LABS: HIV-1/2 Ag & Ab Screen Negative (Negative)
[2023-11-08 23:51] LABS: HBs Antibody, Quant <3.1 mIU/mL (See Note); Hep B Surface Ab Negative (See Note); Hepatitis B Core Antibody Negative (Negative); Hepatitis B Surface Antigen Negative (Negative)
== END 2023-11-08 02:52 | disposition home or self-care (01) ==
PROVIDERS: PCP Nurse Practitioner Family; Visit Provider Nurse Practitioner Family
DX: Z11.4 Encounter for screening for human immunodeficiency virus [HIV] (principal); E11.9 Type 2 diabetes mellitus without complications; D69.6 Thrombocytopenia, unspecified; Z11.59 Encounter for screening for other viral diseases
CPT/HCPCS: 36415; 80053; 80061; 85027; 86704; 86706; 86803; 87340; 87389

== ENCOUNTER 2024-03-12 01:08 | Outpatient (CLI) | payer OTHER, SELFPAY ==
--- NOTE | 2024-03-12 10:45 | DI.MRI_ITS ---
Exam(s) MR UPPER JOINT LT WO EXAM: MR UPPER JOINT LT WO CLINICAL HISTORY: persistent pain, limited ROM, impingement syndrome lt shoulder, M75.42. TECHNIQUE: Multiplanar multisequence MRI was performed. COMPARISON: No prior examinations for comparison. FINDINGS: BONES: There is mild marrow edema seen in the superior lateral aspect of the humeral head. JOINTS: The acromioclavicular joint is normal. The glenohumeral joint is normal. There is a joint eff usion. TENDONS: Supraspinatus: Note is made of a partial tear of the supraspinatus tendon. No evidence of a full-thi ckness tendon tear. There are foci of hypointense T1 and T2 weighted signal within the biceps tendon . This may represent calcific tendinitis versus prior surgery. Please correlate clinically. Infraspinatus: Unremarkable. Subscapularis: Unremarkable. Teres Minor: Unremarkable. Biceps and Trumann: No evidence of a tendon tear. There is a small amount of fluid seen around the te ndon which may represent a tenosynovitis. MUSCLES: Unremarkable. GLENOID LABRUM: There is decreased size and hyperintense signal associated with the posterior superio r labrum suspicious for tear. SOFT TISSUES: Unremarkable. LIGAMENTS: Unremarkable. OTHER: There is a small amount of fluid in the subacromial subdeltoid bursa. IMPRESSION: 1. Findings suggestive of a partial tear of the biceps tendon. 2. Decreased size and hyperintense signal seen in the posterior superior labrum suspicious for tear. 3. Small amount of fluid seen around the biceps tendon which may represent a tenosynovitis. 4. Foci of hypointense T1 and T2 weighted signal within the biceps tendon. This may represent calcif ic tendinitis. Correlation with prior surgical history is recommended. 5. Contusion involving the humeral head. DATA REPOSITORY:
== END 2024-03-12 01:28 ==
LOC: DI 01:08
PROVIDERS: PCP Nurse Practitioner Family; Visit Provider Nurse Practitioner Family
DX: M75.42 Impingement syndrome of left shoulder (principal)
CPT/HCPCS: 73221

== ENCOUNTER 2024-03-26 11:44 | Outpatient (CLI) | payer OTHER, SELFPAY ==
--- NOTE | 2024-03-26 10:15 | DI.RAD_ITS ---
Exam(s) XR SHOULDER LT COMPLETE 2+V EXAM: XR SHOULDER LT COMPLETE 2+V CLINICAL HISTORY: LEFT SHOULDER PAIN. TECHNIQUE: 2D digital imaging was performed. Three views. COMPARISON: MR MR UPPER JOINT LT WO from 03/12/2024 FINDINGS: BONES: No acute fracture is present. No bony destructive lesion is seen.There is mild spurring at the tip of the acromion. JOINTS: No dislocation present. There is mild narrowing of the glenohumeral joint space and spurring at the glenoid. There is no significant spurring at the AC joint. SOFT TISSUE: There is a calcification above the greater tuberosity is well as an additional ovoid camilla cifications adjacent to the lesser tuberosity, consistent with calcific tendinosis. IMPRESSION: Calcific tendinosis. Mild degenerative changes of the glenohumeral joint. DATA REPOSITORY: RADIATION DOSE DELIVERED:
== END 2024-03-26 11:45 | disposition home or self-care (01) ==
LOC: DIORS 11:44
PROVIDERS: PCP Nurse Practitioner Family; Visit Provider Student in an Organized Health Care Education/Training Program
DX: M75.42 Impingement syndrome of left shoulder (principal)
CPT/HCPCS: 73030

== ENCOUNTER 2024-04-03 02:58 | Outpatient (CLI) | payer OTHER, SELFPAY ==
[2024-04-03 10:13] LABS: ESR 16 mm/hr (0-20)
[2024-04-03 10:28] LABS: C-Reactive Protein < 0.50 mg/dL (<or=0.5)
== END 2024-04-03 02:59 | disposition home or self-care (01) ==
LOC: LBO 02:58
PROVIDERS: PCP Nurse Practitioner Family; Visit Provider Student in an Organized Health Care Education/Training Program
DX: M75.42 Impingement syndrome of left shoulder (principal)
CPT/HCPCS: 36415; 85652; 86140; 89051

== ENCOUNTER 2024-04-18 11:37 | Outpatient (CLI) | payer OTHER, SELFPAY ==
--- NOTE | 2024-04-18 10:45 | DI.RAD_ITS ---
Exam(s) XR WRIST RT COMPLETE EXAM: XR WRIST RT COMPLETE CLINICAL HISTORY: R wrist pain. TECHNIQUE: 2D digital imaging was performed. COMPARISON: No exams were available for comparison FINDINGS: 3 views No evidence of fracture nor dislocation nor significant ulnar variance. No degenerative changes. Sc aphoid and scapholunate distance are normal. First carpometacarpal joint appears unremarkable. No o sseous lesions nor erosions. No radiopaque foreign body. IMPRESSION: No significant osseous findings in the right wrist. DATA REPOSITORY: RADIATION DOSE DELIVERED:
== END 2024-04-18 11:38 | disposition home or self-care (01) ==
LOC: DIORS 11:37
PROVIDERS: PCP Nurse Practitioner Family; Visit Provider Physician Assistant
DX: M25.531 Pain in right wrist (principal)
CPT/HCPCS: 73110

== ENCOUNTER 2024-05-30 11:33 | Day surgery (SDC) | payer OTHER, SELFPAY ==
[2024-05-30] VITALS (12 sets, daily range): BP systolic 89–144; BP diastolic 57–91; PULSE 73–104; RESP 16–29; TEMP 35.9–37.8; O2SAT 93–98; BMI 33.1
--- NOTE | 2024-05-30 07:22 | W.PM.DSUDISC ---
Date of service: 05/30/24 Discharge Plan Disposition Patient Disposition: Home Condition: Stable Discharge Details Attending Provider: Bear Burnett Primary Care Provider: Minerva Denney Meds and New Rx's Prescriptions: New naproxen 250 mg tablet 250 - 500 mg PO BID PRN (Reason: moderate pain and swelling) Qty: 40 0RF oxycodone 5 mg tablet 5 - 10 mg PO .q4-6h MDD 30 mg PRN (Reason: severe pain) Qty: 18 0RF Continued metformin 500 mg tablet extended release 24 hr 2,000 mg PO DAILY Qty: 360 3RF (DME) blood-glucose meter [OneTouch Ultra2 Meter] Kit See Rx Instructions .MEDSUPPLY Qty: 1 2RF Rx Instructions: Check blood sugar twice a day cyclobenzaprine 5 mg tablet 5 mg PO TID PRN (Reason: muscle spasm) Qty: 42 0RF Rx Instructions: si-2 tabs po up to tid PRN zolpidem 10 mg tablet 5 - 10 mg PO DAILY PRN (Reason: insomnia) Qty: 30 0RF Rx Instructions: 5-10mg on work days for insomnia (DME) lancets [OneTouch Delica Plus Lancet] 33 gauge misc See Rx Instructions .MEDSUPPLY Qty: 200 4RF Rx Instructions: Check blood sugar twice a day (DME) OneTouch Ultra Test Strip See Rx Instructions .MEDSUPPLY Qty: 200 3RF Rx Instructions: Check blood sugar twice a day rosuvastatin 5 mg tablet 5 mg PO DAILY Qty: 90 3RF Rx Instructions: Take 1 tablet daily Discontinued ibuprofen 800 mg tablet 800 mg PO TID PRN (Reason: pain) Qty: 60 1RF Discharge Instructions Additional Instructions: Surgery: Revision left shoulder arthroscopy with extensive debridement (including synovial biopsy & removal of retained suture) and biceps tenodesis 05/30/24 Activity: You should gradually increase range of motion motion and use of your shoulder. You may use your shoulder for all regular activities while protecting biceps repair. Avoid any weighted elbow flexion or resisted supination for 6-8 weeks. No heavy lifting, reaching overhead, or lifting away from body for approximately 2-3 months. You may use the sling whenever you are out of the house for a few weeks. At home it is best to remove the sling and rest the arm on a pillow at your side or support the operative side with your other hand. A physical therapy prescription will be sent electronically to start in about 3 weeks. Prescriptions: Naproxen 250 mg take 1-2 every 12 hours with a meal as needed for moderate pain Oxycodone 5 mg take 1-2 every 4-6 hours as needed for severe pain You may use lqho-jye-krhdhmu Tylenol (acetaminophen) as needed for mild pain. These pain medications may be taken all at once or in different combinations as needed. Also, recommend Colace (docusate) as a stool softener as surgery and pain medicine cause constipation. You may try hxxi-rzx-ofmwkso diphenhydramine (Benadryl) 25-50 mg nightly as a sleep aid Dressings: Remove shoulder bandage after 3 days. Leave the sticky Steri-Strips in place until they fall off or remove them after you shower. Cover the incisions with Band-Aids or leave them open to air. You may shower after 5 days. Follow-up: 10-[address] Burnett You may take off the leg compression stockings this evening at home. You may also leave them on a few days longer if you have a history of leg swelling or edema. Let us know right away if you develop any redness, drainage, fevers, chest pain, or trouble breathing. Do not drink alcohol or drive for at least 24 hours after anesthesia. Please call the office during business hours with any questions or concerns. 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
[2024-05-30] MEDS: Lactated Ringers 1,000 ML 30 ML IV (12:40)
--- NOTE | 2024-05-30 12:40 | W.ANESPRE ---
General Info Date of Service Date Performed: 05/30/24 Height: 5 ft 10 in Weight: 104.9 kg Body Mass Index (BMI): 33.1 Surgical Procedure: Operation Date: 05/30/24 13:10 Proposed Procedure Side Surgeon p Shoulder Rotator Cuff Arthroscopic w/Extensive Debridement, Biceps Tenodesis, Subacromial Decompression Left Bear Burnett MD Meds Allergies and Home Medications Allergies Allergy/AdvReac Type Severity Reaction Status Date / Time No Known Allergies Allergy Verified 05/30/24 12:03 Home Medication ?Medication ?Instructions ?Recorded blood-glucose meter (OneTouch #1 ea 12/17/20 Ultra2 Meter kit) rosuvastatin 5 mg tablet 5 mg PO DAILY #90 tabs 01/16/24 cyclobenzaprine 5 mg tablet 5 mg PO TID PRN muscle spasm #42 02/28/24 tabs ibuprofen 800 mg tablet 800 mg PO TID PRN pain #60 tabs 05/01/24 metformin 500 mg tablet,extended 2,000 mg (4 x 500 mg) PO DAILY 05/01/24 release 24 hr #360 tabs blood sugar diagnostic (OneTouch #200 ea 05/15/24 Ultra Test strips) lancets 33 gauge (OneTouch Delica #200 ea 05/15/24 Plus Lancet) zolpidem 10 mg tablet 5 - 10 mg (0.5 - 1 x 10 mg) PO 05/15/24 DAILY PRN insomnia #30 tabs Current Visit Medications: Current Medications Generic Name Dose Route Start Last Admin Trade Name Freq PRN Reason Stop Dose Admin Droperidol 0.625 mg 05/30/24 11:46 Droperidol 2.5 Mg/Ml Vial IVP 06/29/24 11:45 DIRECTED PRN Ephedrine Sulfate 0 mg 05/30/24 11:46 Ephedrine 25 Mg/5 Ml Syringe IVP 06/29/24 11:45 DIRECTED PRN Fentanyl 0 mcg 05/30/24 11:46 Fentanyl 100 Mcg/2 Ml Vial IVP 06/29/24 11:45 DIRECTED PRN Hydromorphone HCl 0 mg 05/30/24 11:46 Hydromorphone 2 Mg/Ml Syr IVP 06/29/24 11:45 DIRECTED PRN Ringer's Solution 1,000 mls @ 30 mls/hr 05/30/24 06:00 IV 05/30/24 23:59 INFUSION MAYLIN Cefazolin Sodium/Dextrose 2 gm in 50 mls @ 100 mls/hr 05/30/24 06:00 Ancef Duplex IVPB 05/30/24 23:59 PREOP MAYLIN Tranexamic Acid/Sodium Chloride 1,000 mg in 100 mls @ 600 mls/hr 05/30/24 06:00 IVPB 05/30/24 23:59 PREOP MAYLIN IV Miscellaneous Supplies 1 each 05/30/24 06:00 Iv Access IV 05/30/24 23:59 DIRECTED MAYLIN Naloxone HCl 0 mg 05/30/24 11:46 Naloxone 0.4 Mg/Ml Vial IVP 06/29/24 11:45 PRN PRN Oxycodone HCl 0 mg 05/30/24 07:22 Oxycodone 5 Mg Tab PO 06/29/24 07:21 Q3H PRN PRN Pain Sodium Chloride 0 ml 05/30/24 06:00 Normal Saline Flush 10 Ml Syr IV 05/30/24 23:59 PRN PRN Sodium Chloride 0 ml 05/30/24 06:00 Normal Saline 10 Ml Vial IJ 05/30/24 23:59 DIRECTED PRN Sterile Water 0 ml 05/30/24 06:00 Water,Injection,Sterile 10 Ml Vial IJ 05/30/24 23:59 DIRECTED PRN PFSH Active Problems Active Problems: Problem Status Onset Code Alcohol use disorder Chronic F10.90 Elevated BP without diagnosis of hypertension Chronic R03.0 Tremor of right hand Chronic R25.1 De Quervain's tenosynovitis, right Chronic M65.4 Tendinopathy of left biceps tendon Chronic M67.922 Superior labrum ehjrgqji-mc-lpkkpyqze (SLAP) tear of left shoulder Chronic S43.432A Impingement syndrome of left shoulder Chronic M75.42 Type 2 diabetes mellitus Chronic E11.9 Hyperlipidemia Chronic E78.5 Osteoarthritis Chronic M19.90 Thrombocytopenia Chronic D69.6 Insomnia Chronic G47.00 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 Obesity (BMI 30-39.9) Chronic E66.9 Medical History Medical History History of alcoholism Tubular adenoma of colon On 2016 colonoscopy Surgical History Surgical History S/P colonoscopy (11/08/20) S/P cervical discectomy S/P right rotator cuff repair S/P right knee surgery Meniscus repair Tobacco Smoking/Tobacco Use Status: Former Tobacco Use Smokeless tobacco user: chewing tobacco Passive smoking exposure: Yes Second hand exposure: Yes Alcohol Alcohol Intake: current Alcohol intake frequency: a few times a week Alcohol type: beer and hard liquor Details: 5-6 on a typical day Substance Use Substance use: Rarely Substance use type: marijuana Vital Signs and Lab Results Vital Signs Most Recent Vital Signs in EMR: Most Recent Vital Signs Temp Pulse Resp BP Pulse Ox 36.8 C 88 18 144/91 H 98 05/30/24 12:00 05/30/24 12:00 05/30/24 12:00 05/30/24 12:00 05/30/24 12:00 Lab Results Blood Type / Crossmatch: No Data to Display Complete Blood Count: No Data to Display Complete Metabolic Panel: No Data to Display Liver Function Panel: No Data to Display Coagulation Panel: No Data to Display Cardiac Panel: No Data to Display Arterial Blood Gas: No Data to Display Venous Blood Gas: No Data to Display Pancreas Panel: No Data to Display Thyroid Panel: No Data to Display Infectious Disease: No Data to Display Blood Cultures: No Data to Display Toxicology Panel: No Data to Display Imaging and Studies Imaging and Studies Study information below may be from another EMR and interpreted by another provider. Please see original notes in EMR for more complete details. Stress Test Summary: 2015: negative for ischemia. Anesthesia Assessment and Plan Anesthesia History Personal History: No History of Anesthesia Complications Family History: No Family History of Anesthesia Complications Exercise Tolerance Exercise Tolerance: Metabolic Equivalents>4 Pertinent Negatives Pertinent Negatives: No Symptoms of GERD Cardiac & Pulmonary Exam Cardiac Exam: Normal S1/S2 Heart Sounds Pulmonary Exam: Clear Bilateral Breath Sounds Implantable Cardiac Device Does patient have a Pacemaker or an ICD?: No Airway Exam Known Difficult Airway: No Mallampati Class: 2 Mouth Opening: Narrow (< 3cm) Thyromental Distance: Less than 3 cm Neck Range of Motion: Full ROM Neck Circumference: Thick Teeth Condition: Normal Dentition ASA Classification ASA Score: ASA 3 Emergency Case?: No NPO Status NPO Status: NPO Clears >2 hours, Solids >8 hours Anesthesia Plan Resuscitation Status: Full Code Anesthesia Technique: General Anesthesia Airway Planned: Endotracheal Tube Monitors Used: Standard Monitors Preoperative Comments:: HTN, DM2, ETOH abuse. Denies chest pain or heart issues. Ernesto Cuevas CRNA
[2024-05-30] MEDS: ceFAZolin 2 GM/50 ML BAG IVPB (14:41)
[2024-05-30] MEDS: TRANEXAMIC ACID/SOD. CHL. 1,000 MG/100 ML BAG 600 MG IVPB (14:45)
--- NOTE | 2024-05-30 14:59 | W.ANESNERVE ---
Nerve Block Single Injection Procedure Date and Time Date Performed: 05/30/24 Procedure Start: 14:07 Location Where Procedure Performed Procedure Location: Day Surgery Unit Reason Performed: Postoperative Analgesia Requesting Provider: Bear Burnett Timeout Performed Timeout Performed: Yes Monitoring Used ECG, Blood Pressure, SpO2 and ETCO2 Sterility Sterility: Hand Hygiene, Surgical Cap, Surgical Mask, Sterile Gloves, Eye Protection and Chlorhexidine Sedation Given During Procedure Sedation Given (Indicate Dose Given): Versed IV Dose:: 3mg IVP Patient Mental Status Patient Mental Status: Sedate with meaningful communication Nerve Block 1st Nerve Block: Laterality: Left Block Type: Interscalene Ultrasound Image Saved?: Yes Needle / Catheter Used: 80mm SonoPlex II Local Anesthetic Bolus (Indicate Dose Given): Lidocaine used for local infiltration of skin, Bupivacaine 0.5% Dose:: 0.5%/10cc (50mg) and Exparel Dose:: 1.33%/10cc (133mg) Additives (Indicate Dose Given): Epinephrine to make 1:200,000 (5mcg/ml) Dose:: 100mcg and Decadron Dose:: 10mg PF Ultrasound: Sterile probe cover and gel used Nerve Stimulator: Supplement to Ultrasound use Paresthesia: None Procedure Tolerated: No Complications and Patient tolerated well Procedure Outcome: Successful Performed By: Dwight Cuevas
[2024-05-30] MEDS: Bupivacaine 0.25% Pres-Free W/EPI 30 ML VIAL (15:12)
[2024-05-30] MEDS: EPINEPHrine 10 MG/10 ML ML (15:50)
--- NOTE | 2024-05-30 16:42 | ROE_ITS ---
Operative Note Operative Note PRE-OP DIAGNOSIS: Left: 1. Pain after prior surgery 2. SLAP tear 3. Partial rotator cuff tearing 4. Calcific tendinitis POST-OP DIAGNOSIS: same PROCEDURE: Left: 1. Arthroscopic biceps tenodesis, CPT# 44779. This involved arthroscopically suturing and reattaching the long head of the biceps tendon to the proximal humerus at the superior margin of the bicipital groove with a screw at the correct tension. 2. Extensive debridement, CPT# 60994. This involved using arthroscopic hand instruments, power instruments, and radiofrequency instruments to release the long head of the biceps tendon and debride areas of SLAP tearing, labral tearing, synovitis, working within the glenohumeral joint anteriorly, superiorly and posteriorly. Also, this involved obtaining multiple synovial soft tissue samples for culture and removing permanent retained suture material from previous bursal rotator cuff repair. 3. Subacromial decompression, CPT# 09607. This involved using arthroscopic power instruments and a radiofrequency wand to re-open the subacromial space The law office assistant was medically required in order to help assist in techniques above, which require positioning the arm, holding the arthroscope, and manipulating multiple instruments and sutures at the same time. This cannot be done without the help of an experienced law office assistant. SURGEON: Bear Burnett [employer] SUPERVISOR: Ofe Gupta ANESTHESIA TYPE: Local By Surgeon, General LMA/ETT and Primary Nerve Block Refer to Anesthesia Record ESTIMATED BLOOD LOSS: 5 PATHOLOGY: none sent COMPLICATIONS: None Patient was transported to: PACU Patient's condition: stable Implants: Arthrex: 4.75mm SwiveLocks x 1 Indications: Please see complete medical record for details. Findings: Exam under anesthesia: Full range of motion, no instability Glenohumeral joint: Significant synovitis, obvious unstable biceps anchor SLAP tear, intact subscapularis and largely intact articular rotator cuff. Mild chondromalacia. Hemorrhagic injection intra-articular biceps at the superior aspect of the bicipital groove. Subacromial space: Previous acromioplasty and bursectomy. Mild adhesions bursal rotator cuff to the undersurface acromion. Prior retained permanent sutures from prior bursal supraspinatus rotator cuff repair and largely healed rotator cuff at this location with the sutures readily removed. Otherwise apparent healthy and intact rotator cuff throughout. Procedure Description: In the operating room, general anesthesia was induced. Bilateral shoulders were examined. The patient was positioned in the beachchair position. All bony prominences were well-padded. Preoperative antibiotics were administered. The shoulder was prepped and draped in the usual sterile fashion. The correct patient, procedure, and side of the procedure were all verified prior to incision. Starting through the posterior portal a standard complete diagnostic arthroscopy was performed of the glenohumeral joint including inspection of the long head of the biceps, anterior and superior labrum, subscapularis tendon, supraspinatus and infraspinatus tendons, and axillary recess. The glenoid and humeral head cartilage as well as the posterior labrum were inspected from an anterior viewing portal. Significant findings and interventions noted above. Of note, the pituitary rongeur was used to obtain 3 separate tissue samples of inflamed synovium, labrum, and capsule and sent as tissue cultures #1 2 and 3. An all-arthroscopic suprapectoral biceps tenodesis was performed through an anterior portal using a Loop N Tack method with a SutureTape FiberLink cinched around and through the tendon. The biceps was tenotomized from the labrum and fixated with a suture anchor at the superior margin of the bicipital groove. The extra knotless repair suture was shuttled around the biceps tendon stump back through the anchor eyelet mechanism and tensioned adding additional security to the repair. Starting through the posterior portal, the arthroscope was directed into the s ubacromial space. A lateral 50 yard line lateral portal was created. A combination of power instruments and a radiofrequency ablator were used to reopen the subacromial space. There was only mild and was recurrent bursitis. There was some mild adhesions in the bursal more medial and anterior rotator cuff to the undersurface acromion, which had already been resected this part of previous acromioplasty. The bursal space was overall quite well?appearing. There was minimal injection and no holley rotator cuff tearing. Centrally, the previous retained permanent suture was found and removed with a pituitary rongeur in 2 separate pieces as culture #4 and 5. The rotator cuff in this location was probed and quite healed. More anteriorly over the area of possible bone or calcium deposit, the rotator cuff was probed and quite sagastume and healthy appearing. Decision was made given revision setting and patient factors to avoid any significant dilation of rotator cuff to remove any calcium or bone, which was not given the appearance of causing any rotator cuff problem. The shoulder was thoroughly irrigated and then drained of arthroscopic fluid. All portal sites were copiously irrigated. These incisions were closed using 3- 0 Monocryl in a buried fashion and then covered with Mastisol, Steri-Strips, Xeroform, dry gauze, and ABDs. The dressings were covered and secured with Medipore tape. The operative extremity was placed into a sling for immobilization. The patient awoke from anesthesia without complication and was transferred to the recovery room in a stable condition. Date of Procedure: 05/30/24
--- NOTE | 2024-05-30 17:05 | W.ANESPOSTOP ---
Postoperative Evaluation Date, Time and Location Date Performed: 05/30/24 Time Performed: 17:05 Patient Location: Day Surgery Unit Vital Signs Most Recent Imported Vital Signs: Most Recent Vital Signs Temp Pulse Resp BP Pulse Ox 36.2 C L 84 16 91/62 L 94 05/30/24 16:25 05/30/24 16:21 05/30/24 16:21 05/30/24 16:20 05/30/24 16:21 Pain Score Most Recent Pain Score: Most Recent Pain Score Pain Level 0 05/30/24 16:25 Assessment Mental Status: Awake (Alert & Oriented to Patient Baseline) Airway and Respiratory Function: Patent airway with normal (patient baseline) respiratory exam Cardiovascular Function: Hemodynamically Stable Hydration Status: Adequately Hydrated Nausea & Vomiting: No Nausea or Vomiting Pain: Pt. Denies Any Pain Peripheral Nerve Block: Regional nerve block not resolved at time of post operative discharge
== END 2024-05-30 18:10 | disposition home or self-care (01) ==
PROVIDERS: PCP Nurse Practitioner Family; Visit Provider Student in an Organized Health Care Education/Training Program
PROC: (CPT 29827; principal; 2024-05-30 13:00)
DX: S43.432A Superior glenoid labrum lesion of left shoulder, initial encounter (principal); X58.XXXA Exposure to other specified factors, initial encounter; M75.102 Unspecified rotator cuff tear or rupture of left shoulder, not specified as traumatic; M75.32 Calcific tendinitis of left shoulder; M67.922 Unspecified disorder of synovium and tendon, left upper arm; M75.42 Impingement syndrome of left shoulder; G89.18 Other acute postprocedural pain
CPT/HCPCS: 29828; 29823; 29826; 64415; 87070; 87075; 87205; J0171; J0665; J0666; J0690; J1100; J1885; J2003; J2250; J2371; J2405; J2704

== ENCOUNTER 2024-08-08 15:58 | Outpatient (REF) | payer BC, SELFPAY ==
[2024-08-08 22:06] LABS: COMMENT (LAB VIEW ONLY) 411.51 mg/dL
== END 2024-08-08 15:59 | disposition home or self-care (01) ==
LOC: LBN 15:58
PROVIDERS: PCP Nurse Practitioner Family; Visit Provider Nurse Practitioner Family
DX: E11.9 Type 2 diabetes mellitus without complications (principal)
CPT/HCPCS: 82043; 82570

== ENCOUNTER 2024-11-12 04:02 | Outpatient (CLI) | payer OTHER, SELFPAY ==
[2024-11-12 12:35] LABS: Calculated LDL 51 mg/dL (<100); Cholesterol 117 mg/dL (<200); HDL Cholesterol 47 mg/dL (>or=40); Triglyceride 95 mg/dL (<150)
[2024-11-12 12:59] LABS: Hemoglobin A1C 8.9 % (<5.7)
[2024-11-12 13:07] LABS: HCT 43.7 % (40.0-50.0); HGB 15.2 g/dL (13.5-17.5); MCH 33.6 pg (27.0-33.0); MCHC 34.8 % (32.0-36.0); MCV 97 fL (80-95); MPV 11.4 fL (8.0-11.0); Platelet Count 119 10^3/uL (130-400); RBC 4.52 10^6/uL (4.36-5.78); RDW 11.8 % (11.8-14.1); RDW-SD 42.0 fL; WBC 5.18 10^3/uL (4.4-10.8)
== END 2024-11-12 04:03 | disposition home or self-care (01) ==
LOC: LOS 04:02
PROVIDERS: PCP Nurse Practitioner Family; Visit Provider Nurse Practitioner Family
DX: D69.6 Thrombocytopenia, unspecified (principal); Z13.220 Encounter for screening for lipoid disorders; Z13.1 Encounter for screening for diabetes mellitus
CPT/HCPCS: 36415; 80061; 85027; 83036

== ENCOUNTER 2024-12-19 05:35 | Outpatient (CLI) | payer OTHER, SELFPAY ==
--- NOTE | 2024-12-19 12:30 | DI.RAD_ITS ---
Exam(s) XR KNEE RT 3V AP,LAT,LETTY EXAM: XR KNEE RT 3V AP,LAT,LETTY CLINICAL HISTORY: right knee pain, hx of meniscus repair, M25.561, Z98.890. TECHNIQUE: 2D digital imaging was performed. Three views. COMPARISON: No exams were available for comparison FINDINGS: BONES: No acute fracture is present. No bony destructive lesion is seen. JOINTS: The joint spaces are maintained. The knee is normally aligned. A small joint effusion is seen. SOFT TISSUE: Vascular calcifications. IMPRESSION: Small joint effusion. DATA REPOSITORY: RADIATION DOSE DELIVERED:
== END 2024-12-19 05:55 ==
LOC: DI 05:35
PROVIDERS: PCP Nurse Practitioner Family; Visit Provider Nurse Practitioner Family
DX: M25.561 Pain in right knee (principal); Z98.890 Other specified postprocedural states
CPT/HCPCS: 73562

== ENCOUNTER → 2025-03-23 00:45 | Outpatient (CLI) | payer OTHER, SELFPAY ==
--- NOTE | 2025-03-23 06:45 | DI.MRI_ITS ---
Exam(s) MR LOWER JOINT RT WO EXAM: MR LOWER JOINT RT WO CLINICAL HISTORY: ongoing right knee pain x 3mo,M25.561. TECHNIQUE: Multiplanar multisequence MRI was performed. COMPARISON: CR XR KNEE RT 3V AP,LAT,LETTY from 12/19/2024 FINDINGS: BONES: There is no fracture or contusion pattern. JOINTS: A moderate-sized joint effusion is present. Articular cartilage: Patellofemoral joint: Articular cartilage is unremarkable. Medial femoral tibial joint: Articular cartilage is unremarkable. Lateral femoral tibial joint: Articular cartilage is unremarkable. LIGAMENTS/TENDONS: Anterior Cruciate: Some surrounding edema but no visible focal tear. Posterior Cruciate: Unremarkable. Medial Collateral:Unremarkable. Lateral Collateral ligament complex: Unremarkable. Extensor mechanism: Unremarkable. Medial retinaculum: Unremarkable. Lateral retinaculum: Unremarkable. Popliteus: Intact. Some surrounding fluid. MENISCI: The medial meniscus shows mild degenerative signal changes. There is a small cyst adjacent to the anterior horn. The lateral meniscus shows blunting at the apex of the anterior horn which may be postsurgical. There is abnormal linear high signal extending through the body which has the appearance of an acute tear.. MUSCLES: Unremarkable. SOFT TISSUES: Mild anterior edema. IMPRESSION: Horizontal tear of the body of the lateral meniscus. Postsurgical changes of the anterior horn of the lateral meniscus. Moderate-sized joint effusion. DATA REPOSITORY:
== END ==
LOC: DI 00:46
PROVIDERS: PCP Nurse Practitioner Family; Visit Provider Nurse Practitioner Family
DX: M25.561 Pain in right knee (principal); R93.7 Abnormal findings on diagnostic imaging of other parts of musculoskeletal system
CPT/HCPCS: 73721